=== PATIENT | female | born 1945 | race Hispanic/Latino ===

== ENCOUNTER → 2019-03-24 | Outpatient (CLI) | payer OTHER ==
[~2019-03-24] MED LIST: ATOR40TA69 PO; LISI1TAB28 PO; MELO-106 PO
== END | disposition home or self-care (01) ==
LOC: RAH 14:01
PROVIDERS: ATTEND Internal Medicine
DX: Z12.31 Encounter for screening mammogram for malignant neoplasm of breast (principal)
CPT/HCPCS: 77067

== ENCOUNTER → 2020-04-22 | Outpatient (CLI) | payer MEDICARE ==
[~2020-04-22] MED LIST changes: -LISI1TAB28 PO; +LISI1TAB51 PO
== END | disposition home or self-care (01) ==
LOC: RAH 09:50
PROVIDERS: ATTEND Internal Medicine
DX: Z12.31 Encounter for screening mammogram for malignant neoplasm of breast (principal); N64.89 Other specified disorders of breast
CPT/HCPCS: 77067

== ENCOUNTER → 2023-04-12 | Outpatient (CLI) | payer MEDICARE | END | disposition home or self-care (01) | LOC: RAH 15:37 | PROVIDERS: ATTEND Internal Medicine | DX: M47.22 Other spondylosis with radiculopathy, cervical region (principal); M19.011 Primary osteoarthritis, right shoulder | CPT/HCPCS: 72040; 73030 ==

== ENCOUNTER → 2024-04-25 | Outpatient (CLI) | payer MEDICARE ==
--- NOTE | 2024-04-25 15:16 | HMCIMG ---
Exam Type: US RENAL SONOGRAM Clinical Information: HEMATURIA Comparison: None Findings: Examination shows normal renal size and echogenicity bilaterally. Preserved cortical thickness and corticomedullary junction region is seen. No hydronephrosis or calculi are seen. No renal masses are seen. There is no evidence of perinephric fluid on either side. No evidence of significant ureteral dilatation is seen. The right kidney measures 8.1 x 3.5 cm. The left kidney measures 8.2 x 3.8 cm. The urinary bladder is normal. No bladder masses, stones, or wall thickening is seen. IMPRESSION: Normal renal anatomy bilaterally.
== END | disposition home or self-care (01) ==
LOC: RAH 14:18
PROVIDERS: ATTEND Internal Medicine
DX: R31.29 Other microscopic hematuria (principal)
CPT/HCPCS: 76770